=== PATIENT | male | born 1975 | race Caucasian/White ===

== ENCOUNTER 2020-08-31 06:15 | Inpatient (IN) | payer OTHER ==
[~2020-08-31] VITALS: Ht 182.9 cm; Wt 122.9 kg
[2020-08-31 06:25] VITALS: BP 133/84
[2020-08-31] MEDS ORDERED: CELEBREX 200 M200 M1 PO (06:31)
[2020-08-31] MEDS ORDERED: APAP W/CODEINE1 TA2 PO (06:31)
[2020-08-31] MEDS ORDERED: ONDANSETRON ODT4 MG PO (06:31)
[2020-08-31] MEDS ORDERED: BACLOFEN5 MG PO (06:32)
[2020-08-31 07:08] LABS: ABSOLUTE EOSINOPHILS 0.3 thou/uL (0.0-0.7); ABSOLUTE LYMPHOCYTES 1.7 thou/uL (0.8-5.3); ABSOLUTE MONOCYTES 0.6 thou/uL (0.0-1.2); ABSOLUTE NEUTROPHILS 2.6 thou/uL (1.6-8.1); BASOPHILS 0.8 %; EOSINOPHILS 6.5 %; HEMOGLOBIN 15.4 gm/dL (14.0-18.0); LYMPHOCYTES 31.9 %; MCH 33.2 pg (26.0-34.0); MCV 94.8 fL (80.0-100.0); MONOCYTES 11.6 %; MPV 7.7 fl. (7.2-11.1); NUCLEATED RBCS 0 /100WBC; PLATELET COUNT* 246 thou/uL (150-400); POLYS 49.2 %; RBC 4.64 mil/uL (4.50-6.00); WBC 5.3 thou/uL (4.0-11.0)
[2020-08-31 07:19] LABS: CALCIUM 8.8 mg/dL (8.5-10.1); CREATININE 1.1 mg/dL (0.6-1.3); POTASSIUM 3.5 mmol/L (3.5-5.1)
[2020-08-31 07:23] LABS: APTT 26.2 Seconds (25.0-31.3); PROTIME 10.9 Seconds (9.20-11.50)
[2020-08-31 07:45] LABS: ALBUMIN 3.5 g/dL (3.4-5.0); TOTAL BILIRUBIN 1.2 mg/dL (<0.1-1.0); TOTAL PROTEIN 7.4 g/dL (6.4-8.2)
[2020-08-31 13:13] VITALS: BP 123/90
[2020-08-31 13:45] VITALS: BP 133/79
--- NOTE | 2020-08-31 13:53 | EKG ---
[place] [address] ELECTROCARDIOGRAM REPORT Name: DE LOS SANTOS,RAMON Room: [address]#: [id number] Admission: 08/31/20 Attend Phys: Rima Heredia, Discharge: Date of : 79 Date of Service: 08/31/20622 Report #: [id number] THIS REPORT FOR: //name// [facility] ED Test Date: 2020-08-31 Test Time: 06:23:17 Pat Name: JOCELYN DE LOS SANTOS Department: Room: 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
[2020-08-31 16:00] VITALS: BP 129/69
[2020-08-31 20:00] VITALS: BP 133/77
[2020-09-01] VITALS: BP 126/76
[2020-09-01 04:00] VITALS: BP 126/78
[2020-09-01 04:24] LABS: HEMATOCRIT 41.8 % (42.0-52.0); HEMOGLOBIN 14.5 gm/dL (14.0-18.0); MCH 32.9 pg (26.0-34.0); MCHC 34.8 g/dL (28.0-37.0); MCV 94.7 fL (80.0-100.0); MPV 7.9 fl. (7.2-11.1); RBC 4.42 mil/uL (4.50-6.00); RDW-CV 12.9 % (10.5-14.5); WBC 5.9 thou/uL (4.0-11.0)
[2020-09-01 04:45] LABS: ALBUMIN 3.2 g/dL (3.4-5.0); CALCIUM 8.5 mg/dL (8.5-10.1); CREATININE 1.1 mg/dL (0.6-1.3); POTASSIUM 4.2 mmol/L (3.5-5.1); TOTAL BILIRUBIN 0.9 mg/dL (<0.1-1.0); TOTAL PROTEIN 6.7 g/dL (6.4-8.2)
[2020-09-01 09:16] VITALS: BP 132/87
[2020-09-01 12:00] VITALS: BP 117/82
[2020-09-01 16:00] VITALS: BP 121/86
[2020-09-01 19:45] VITALS: BP 124/86
[2020-09-02 01:43] VITALS: BP 134/81
[2020-09-02 05:00] VITALS: BP 121/81
[2020-09-02] MEDS ORDERED: XARELTO15 MG PO (06:34)
[2020-09-02] MEDS ORDERED: XARELTO20 MG PO (06:34)
[2020-09-02] MEDS ORDERED: TRAMADOL 50 MG50 MG PO (06:34)
[2020-09-02] MEDS ORDERED: LIDOPATCH1 EACH TOP (06:34)
[2020-09-02 08:04] VITALS: BP 122/81
[2020-09-02 11:01] VITALS: BP 122/81
[2020-09-02 12:03] VITALS: BP 118/83
[2020-09-02 13:54] VITALS: BP 122/81
[2020-09-02 22:06] LABS: HEPATITIS B SURFACE AG Negative (Negative)
== END 2020-09-02 14:30 | disposition home or self-care (01) | DRG 175 ==
LOC: M.ERS 06:15 → M.TBA-ER 09:39 → M.2W 13:47
PROVIDERS: Personal Emergency Response Attendant; ADMIT Internal Medicine; ATTEND Internal Medicine
DX: I26.99 Other pulmonary embolism without acute cor pulmonale (principal); J96.01 Acute respiratory failure with hypoxia; Z20.822 Contact with and (suspected) exposure to COVID-19; Z79.899 Other long term (current) drug therapy; Z23 Encounter for immunization

== ENCOUNTER → 2020-11-14 | Outpatient (CLI) | payer OTHER ==
[~2020-11-14] MED LIST: APAP W/CODEINE1 TA2 PO; BACLOFEN5 MG PO; CELEBREX 200 M200 M1 PO; LIDOPATCH1 EACH TOP; ONDANSETRON ODT4 MG PO; TRAMADOL 50 MG50 MG PO; XARELTO15 MG PO; XARELTO20 MG PO
== END ==
LOC: M.CT 07:12
PROVIDERS: ATTEND Internal Medicine Critical Care Medicine
DX: I26.99 Other pulmonary embolism without acute cor pulmonale (principal); K76.0 Fatty (change of) liver, not elsewhere classified; R16.1 Splenomegaly, not elsewhere classified; R07.1 Chest pain on breathing; Z86.711 Personal history of pulmonary embolism